=== PATIENT | female | born 1960 | race Caucasian/White ===

== ENCOUNTER 2021-08-01 16:49 | Emergency (ER) | payer OTHER, SELFPAY ==
--- NOTE | ~2021-08-01 | XR_ITS ---
EXAM: XR toe 4th RT min 2V DATE: 08/01/2021 17:42 HISTORY: deformity in right 4th toe; stubbed toe on a table today . COMPARISON: None available. FINDINGS: Mildly decreased mineralization. Oblique mildly displaced fracture of the distal aspect of the right fourth proximal phalange, with possible intra-articular extension. No lytic or blastic les ion. Joint spaces are maintained. No erosion or periosteal change. Soft tissues within normal limits. IMPRESSION: Mildly displaced oblique fracture of the distal right fourth proximal phalange, with poss ible intra-articular extension. Reviewed, dictated and finalized at location K. IMPRESSION: Mildly displaced oblique fracture of the distal right fourth proxim al phalange, with possible intra-articular extension.
[2021-08-01 17:00] VITALS: BP 127/83; PULSE 70; RESP 18; TEMP 36.2; O2SAT 97
--- NOTE | 2021-08-01 17:21 | ED.GENADULT ---
HPI - General Adult General Chief complaint: Extremity Injury, Lower Stated complaint: R toe, possibly dislocated Time Seen by Provider: 08/01/21 17:21 History of Present Illness HPI narrative: Patient is a 61-year-old woman who was barefoot on her porch 4 by she stubbed her right 4th toe on a table, resulting in a deformity of the right 4th toe. No other injuries or complaints. She did take Tylenol and Advil before arrival. She is able to ambulate with a walker but with pain in the right toe. No abrasions or lacerations. No other complaints such as back pain or neck pain or pain in the other extremities. No numbness or tingling in the toe. Related Data Home Medications Medication Instructions Recorded Confirmed amitriptyline 25 mg tablet 1 tablet PO HS 08/01/21 08/01/21 atorvastatin 10 mg tablet 1 tablet PO DAILY 08/01/21 08/01/21 celecoxib 200 mg capsule 1 cap PO DAILY 08/01/21 08/01/21 hydrochlorothiazide 25 mg tablet 1 tablet PO DAILY 08/01/21 08/01/21 pantoprazole 40 mg tablet,delayed 1 tablet PO DAILY 08/01/21 08/01/21 release paroxetine HCl 10 mg tablet 1 tablet PO DAILY 08/01/21 08/01/21 Allergies Allergy/AdvReac Type Severity Reaction Status Date / Time adhesive tape Allergy Unknown RASH Verified 12/31/16 07:28 erythromycin base Allergy Unknown UNKNOWN Verified 12/31/16 07:28 Sulfa (Sulfonamide Allergy Unknown UNKNOWN Verified 12/31/16 07:28 Antibiotics) orphenadrine AdvReac Unknown EYE MUSCLE Verified 12/31/16 07:28 PROBLEMS tetracycline AdvReac Unknown RASH WITH Verified 12/31/16 07:28 EXPOSURE TO SUN Review of Systems Review of Systems: All systems reviewed & are unremarkable except as noted in HPI and below Constitutional: Constitutional: Reports no additional constitutional complaints, Denies anorexia, Denies body ache(s), Denies chills, Denies excessive sweating, Denies fatigue, Denies fever(s), Denies frequent falls, Denies headache(s), Denies malaise and Denies poor appetite Eyes: Eyes: Reports no additional eye complaints, Denies blurry vision, Denies change in vision, Denies irritation, Denies itchy eyes and Denies photophobia ENT: Reports system reviewed and no additional complaints, except as documented, Reports Normal hearing present, Denies change in voice, Denies dysphagia, Denies vertigo, Denies dizziness, Denies ear discharge, Denies headache(s), Denies hearing loss, Denies hoarseness, Denies nasal congestion, Denies neck pain, Denies sinus pressure, Denies sore throat and Denies throat swelling Cardiovascular: Cardiovascular: Reports no additional cardiovascular complaints, Denies chest pain, Denies syncope, Denies rapid heart rate, Denies irregular heart rhythm, Denies leg edema, Denies dyspnea and Denies slow heart rate Respiratory: Respiratory: Reports no additional respiratory complaints, Denies cough, Denies dyspnea, Denies stridor and Denies wheezing Gastrointestinal: Gastrointestinal: Reports no additional gastrointestinal complaints, Denies abdominal pain, Denies melena, Denies hematochezia, Denies dysphagia, Denies diarrhea, Denies nausea and Denies vomiting Genitourinary: Genitourinary: Denies hematuria, Denies urinary frequency, Denies dysuria, Denies flank pain and Denies urinary urgency Musculoskeletal: Musculoskeletal: Reports no additional musculoskeletal complaints, Reports abnormal gait, Denies back pain, Denies myalgias, Reports arthralgias, Denies joint swelling, Reports limited range of motion (of 4th toe on right), Denies muscle cramps, Denies muscle weakness, Denies neck pain and Denies numbness Integumentary/Breasts: Skin/Breast: Reports system reviewed and no additional complaints, except as docu, Denies breast pain, Denies change in pigmentation, Denies pruritus, Denies erythema and Denies wounds Neurologic: Reports system reviewed and no additional complaints, except as documented, Reports Normal hearing present, Denies Abnormal speech present, Denies abno
--- NOTE | 2021-08-01 17:43 | PC.NURSE ---
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
[2021-08-01 17:58] VITALS: BP 127/83; PULSE 70; RESP 20; TEMP 36.2; O2SAT 98
--- NOTE | 2021-08-01 17:58 | PC.NURSE ---
madalyn tape to 4th digit per dr gorman, instructions given on reapplication.
== END 2021-08-01 18:13 | disposition home or self-care (01) ==
PROVIDERS: Emergency Provider Emergency Medicine; PCP Family Medicine
DX: S92.511A Displaced fracture of proximal phalanx of right lesser toe(s), initial encounter for closed fracture (principal); W22.03XA Walked into furniture, initial encounter
CPT/HCPCS: 73660; 99284

== ENCOUNTER 2021-11-26 15:58 | Emergency (ER) | payer OTHER, SELFPAY ==
--- NOTE | ~2021-11-26 | XR_ITS ---
XR elbow RT 2V 11/26/2021 16:49 INDICATION: Right elbow pain PROCEDURE: 2 views right elbow COMPARISON: No prior studies for comparison. FINDINGS: Fracture, dislocation or subluxation is not identified. The soft tissues appear within norm al limits. No foreign bodies are identified. IMPRESSION: 1: NO ACUTE BONE OR JOINT ABNORMALITY IDENTIFIED. Reviewed, dictated and finalized at location A.
--- NOTE | ~2021-11-26 | CT_ITS ---
EXAMINATION: CT brain wo con DATE: 11/26/2021 16:49 INDICATION: Head injury. TECHNIQUE: Computed tomography (CT) of the head was performed without intravenous contrast. The mA wa s adjusted according to patient size. Iterative reconstruction technique was employed. The dose-lengt h product was 605.33 mGy-cm. COMPARISON: None FINDINGS: There is no intracranial hemorrhage, acute infarction, or abnormal intracranial mass lesion . The ventricles are normal in size. The orbits are normal. There is mild mucosal thickening in the p aranasal sinuses. The mastoid air cells are normal. IMPRESSION: 1. Normal brain. Reviewed, dictated and finalized at location A. IMPRESSION: 1. Normal brain.
--- NOTE | ~2021-11-26 | CT_ITS ---
EXAMINATION: CT cervical spine wo con DATE: 11/26/2021 16:48 INDICATION: Head injury. Neck injury. TECHNIQUE: Computed tomography (CT) of the cervical spine was performed without intravenous contrast. Automated exposure control and iterative reconstruction technique were employed. The dose-length pro duct was 347.28 mGy-cm. COMPARISON: None FINDINGS: There is 3 degrees levocurvature of cervical spine. There is mild kyphosis of cervical spin e. Vertebral body heights are normal. There is mildly decreased disc height at C4-C5, severely decrea sed disc height at C5-C6, and moderately decreased disc height at C6-C7. The following disc levels ar e specifically discussed: C2-C3: There is no uncovertebral joint osteoarthritis. There is mild left facet joint osteoarthritis. There is no neural foraminal stenosis. There is no central canal stenosis. C3-C4: There is no uncovertebral joint osteoarthritis. There is mild bilateral facet joint osteoarthr itis. There is no neural foraminal stenosis. There is no central canal stenosis. C4-C5: There is no uncovertebral joint osteoarthritis. There is no facet joint osteoarthritis. There is no neural foraminal stenosis. There is mild central canal stenosis. C5-C6: There is severe right and moderate left uncovertebral joint osteoarthritis. There is mild bila teral facet joint osteoarthritis. There is mild bilateral neural foraminal stenosis. There is mild ce ntral canal stenosis. C6-C7: There is severe bilateral uncovertebral joint osteoarthritis. There is no facet joint osteoart hritis. There is mild bilateral neural foraminal stenosis. There is mild central canal stenosis. C7-T1: There is no uncovertebral joint osteoarthritis. There is mild left facet joint osteoarthritis. There is no neural foraminal stenosis. There is no central canal stenosis. IMPRESSION: 1. No fracture. 2. Severe cervical spondylosis. Reviewed, dictated and finalized at location A.
[2021-11-26 16:20] VITALS: BP 150/88; PULSE 76; RESP 20; TEMP 36.9; O2SAT 98
--- NOTE | 2021-11-26 16:56 | ED.HEATRA ---
HPI - Head Injury General Chief complaint: Fall Stated complaint: fell, head and elbow injury Time Seen by Provider: 11/26/21 16:06 Source: patient Mode of arrival: ambulatory Limitations: no limitations History of Present Illness HPI Narrative: this is a 61-year-old female that had a fall from a chair she fell backwards and hit the back of her head with no loss of consciousness is complaining of a mild headache this occurred yesterday and neck pain and bruised right elbow with good range of motion not on any blood thinners no other symptoms no blurry vision no nausea vomiting. Complaint: head injury Onset (ago): day(s) Mechanism of Injury: fall Place: work Loss of Consciousness: no Location of injury: occipital Severity: mild Severity scale (1-10): 2 Quality: dull Radiation: neck Other Injuries: upper extremity Associated symptoms: denies other symptoms Related Data Home Medications Medication Instructions Recorded Confirmed amitriptyline 25 mg tablet 1 tablet PO HS 08/01/21 08/01/21 atorvastatin 10 mg tablet 1 tablet PO DAILY 08/01/21 08/01/21 celecoxib 200 mg capsule 1 cap PO DAILY 08/01/21 08/01/21 hydrochlorothiazide 25 mg tablet 1 tablet PO DAILY 08/01/21 08/01/21 pantoprazole 40 mg tablet,delayed 1 tablet PO DAILY 08/01/21 08/01/21 release paroxetine HCl 10 mg tablet 1 tablet PO DAILY 08/01/21 08/01/21 Allergies Allergy/AdvReac Type Severity Reaction Status Date / Time adhesive tape Allergy Unknown RASH Verified 11/26/21 16:48 erythromycin base Allergy Unknown UNKNOWN Verified 11/26/21 16:48 Sulfa (Sulfonamide Allergy Unknown UNKNOWN Verified 11/26/21 16:48 Antibiotics) orphenadrine AdvReac Unknown EYE MUSCLE Verified 11/26/21 16:48 PROBLEMS tetracycline AdvReac Unknown RASH WITH Verified 11/26/21 16:48 EXPOSURE TO SUN Review of Systems Review of Systems: All systems reviewed & are unremarkable except as noted in HPI and below PMFSH Past Medical History Medical History Breast cancer, left breast Depression GERD (gastroesophageal reflux disease) Hyperlipidemia Exam Const: General: healthy appearing, no acute distress and alert Nutritional Appearance: well nourished and obese Orientation/consciousness: patient oriented x3 Limitations: no limitations HENMT: Head: normal to inspection Face/Nose/Sinus: Normal external nose present Face and sinus: normal facial exam Mouth: Yes Normal oral and palatal mucosa present Eyes: Conjunctivae: conjunctivae normal Pupils: Equal, round and reactive pupils present EOM: EOMs intact bilaterally Neck: Neck: normal visual inspection, no lymphadenopathy and no meningeal signs Chest: Chest palpation & inspection: normal inspection of the chest Resp: Effort & Inspection: normal respiratory effort Auscultation: clear to auscultation bilaterally Cardio: Rate: regular rate Rhythm: regular rhythm GI: GI Palp: Yes Soft to palpation Auscultation: normal bowel sounds : General: Yes bladder normal to palpation Back/Spine/Pelvis: Back: no CVA tenderness Skin: General skin exam: normal color Rashes: no rashes Wounds: wounds noted Other: Right elbow with bruising Neuro: General: patient oriented x3 Cranial nerves: Yes CN's II-XII intact bilaterally Speech: normal speech Gait exam (Neuro): Normal gait present Extrem: General: normal to inspection, no clubbing, cyanosis or edema and no pedal edema Psych: Mental Status: mental status grossly normal Affect: normal affect Attitude: cooperative Course Course Emergency Course: patient declined any pain medication, CT of head neck and x-ray of the elbow were all reviewed and normal and discussed this with the patient. Vital Signs Vital signs: Vital Signs Temperature 36.9 C 11/26/21 16:20 Pulse Rate 76 11/26/21 16:20 Respiratory Rate 20 11/26/21 16:20 Blood Pressure 150/88 H 11/26/21 16:20 Pulse Oximetry
[2021-11-26 17:41] VITALS: BP 169/82; PULSE 74; RESP 20; TEMP 36.7; O2SAT 98
== END 2021-11-26 17:40 | disposition home or self-care (01) ==
LOC: CHSED 17:07
PROVIDERS: Emergency Provider Emergency Medicine; PCP Family Medicine
DX: S00.93XA Contusion of unspecified part of head, initial encounter (principal); W19.XXXA Unspecified fall, initial encounter
CPT/HCPCS: 70450; 72125; 73070; 99284